=== PATIENT | male | born 2005 | race Caucasian/White ===

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

== ENCOUNTER 2023-12-24 21:14 | Emergency (ER) | payer OTHER, SELFPAY ==
[2023-12-24] VITALS (7 sets, daily range): BP systolic 111–137; BP diastolic 70–82; PULSE 67–88; RESP 15–22; TEMP 37.2; O2SAT 98–99
--- NOTE | 2023-12-24 21:35 | EKG12_ITS ---
Test Reason : CP Blood Pressure : / mmHG Vent. Rate : 072 BPM Atrial Rate : 072 BPM P-R Int : 164 ms QRS Dur : 090 ms QT Int : 368 ms P-R-T Axes : 059 063 062 degrees QTc Int : 402 ms Normal sinus rhythm Normal ECG Confirmed by NICHOLAS CASTANEDA, ABDOUL ([id number]), fashion editor NATHAN SNIDER ([id number]) on 12/28/2023 9:28:28 AM Referred By: KATHERINE Confirmed By:AILYN PETERSON MD
--- NOTE | 2023-12-24 21:40 | RAD_ITS ---
INDICATION: CHEST PAIN EXAMINATION/TECHNIQUE: X-RAY - XR Chest 1 View COMPARISON: 06/19/2020. FINDINGS: LINES/DEVICES: None. LUNGS: No consolidation or evidence of an effusion. No evidence of edema or a pneumothorax. MEDIASTINUM AND CARDIOVASCULAR STRUCTURES: Cardiac silhouette is normal in size and contour. Mediastinum is unremarkable. BONES AND SOFT TISSUES: No acute abnormality. RAD/Chest 1 View (Portable) IMPRESSION: No evidence of cardiopulmonary disease. Electronically Signed: Atul Roper DO at 22:02 EDT ,
[2023-12-24 21:49] LABS: Absolute Lymphocyte Count 2.61 X10^3/uL (0.83-4.51); Absolute Neutrophil Count 4.7 X10^3/uL (2.0-7.7); Basophil# 0.05 X10^3/uL; Basophil% 0.6 % (0-1); Eosinophil# 0.11 X10^3/uL; Eosinophils% 1.3 % (0-5); Hematocrit 43.5 % (40-54); Hemoglobin 15.1 g/dL (13.0-16.5); Lymphocyte # 2.61 X10^3/ul (0.83-4.51); Lymphocyte % 31.3 % (19-41); Mean Corp Hgb Conc 34.7 g/dL (32-36); Mean Corpuscular Hgb 30.4 pg (27.0-32.0); Mean Corpuscular Volume 87.5 fL (80-94); Mean Platelet Vol. 10.6 fl (6.2-12.0); Monocyte# 0.84 X10^3/uL; Monocyte% 10.1 % (0-10); NRBC Flagged by Analyzer 0 % (0-5); Neutrophil % 56.3 % (47-70); Platelet Count 348 K/mm3 (150-450); RBC Distribution Width CV 12.4 % (11.6-14.6); RBC Distribution Width SD 39.6 fl (35.1-43.9); Red Blood Count 4.97 M/mm3 (4.6-6.2); White Blood Count 8.3 K/mm3 (4.4-11.0)
[2023-12-24 22:10] LABS: Troponin-I HS (w/2H Reflex) 7 pg/mL (3.0-78.0)
[2023-12-24 23:08] LABS: Anion Gap 9 (5-15); BUN 12 mg/dL (7-18); BUN/Creat Ratio 12.9 RATIO (10-20); Calcium,Total 9.3 mg/dL (8.5-10.1); Chloride 108 mmol/L (98-107); Creatinine, Serum 0.93 mg/dL (0.70-1.30); EST Glomerular Filtration Rate 110 mL/min (>60); Est Glom Filt Rate - Afr Amer 133 mL/min (>60); Glucose 111 mg/dL (74-106); Potassium 3.7 mmol/L (3.5-5.1); Sodium Level 141 mmol/L (136-145)
[2023-12-24] MEDS: Ketorolac 15 MG/ML Vial IV (23:34)
[2023-12-24] MEDS: Lidocaine 5% Patch 1 PATCH TOPICAL (23:34)
--- NOTE | 2023-12-24 23:44 | ED.VIS.CHEST ---
HPI History of Present Illness Chief Complaint: Chest Pain Informant: patient Narrative Narrative: Patient is a 18-year-old male presenting with left-sided rib pain. Has been progressing over the past 2 days became more severe today. Earlier this evening he was taking her shirt off when the pain got so bad it froze him up and he had a fall to the ground. It is worse with certain movements as well as deep breathing. He denies any injuries. 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 Has not taken any medication for pain including ibuprofen or Tylenol. Had a similar episode about a year ago but it was not this severe and did not follow-up at that time. Has had some intermittent numbness to his left forearm and hands he does not currently have any. No other complaints or concerns reported. Denies any swelling of his legs, history of DVT PE. Denies any recent cough or URI symptoms. No fevers reported. Denies any trauma to the area. Denies other complaints at this time [facility] Medical History Depression Home Medications ?Medication ?Instructions ?Recorded ?Last Taken ?Type cyclobenzaprine 10 mg tablet 10 mg PO TID PRN Muscle Spasm #20 12/24/23 Unknown Rx TABLETS Allergy/AdvReac Type Severity Reaction Status Date / Time amoxicillin Allergy Hives Verified 12/24/23 21:15 Social History Smoking Status: Never smoker substance use type: does not use ROS ROS ED Constitutional Constitutional ED: Denies chills or fever(s) ENT ENT ED: Denies sore throat Cardiovascular Cardiovascular: Reports as per HPI and chest pain Respiratory/Chest Respiratory/Chest: Denies cough or dyspnea Gastrointestinal Gastrointestinal: Denies nausea or vomiting Integumentary Denies rash Neurologic Neurologic: Reports paresthesias LUE Hematologic/Lymphatic Hematologic/Lymphatic: Denies easy bleeding or easy bruising EXAM Physical Exam Const Vital Signs: 12/24/23 21:14 12/24/23 21:14 12/24/23 21:42 Temperature 98.9 F Temperature Source Oral Pulse Rate 67 Respiratory Rate 16 Respiratory Effort Normal Non-Labored Blood Pressure 126/78 H Blood Pressure Mean 94 Pulse Ox 98 Oxygen Delivery Method Room Air Room Air 12/24/23 21:43 12/24/23 21:48 12/24/23 22:00 Temperature Temperature Source Pulse Rate 88 81 Respiratory Rate 18 22 H Respiratory Effort Blood Pressure 137/79 H Blood Pressure Mean 94 Pulse Ox 99 99 99 Oxygen Delivery Method Room Air 12/24/23 22:15 12/24/23 22:30 12/24/23 23:00 Temperature Temperature Source Pulse Rate 81 67 79 Respiratory Rate 18 15 18 Respiratory Effort Blood Pressure 121/77 H 111/70 129/82 H Blood Pressure Mean 92 82 97 Pulse Ox 99 99 99 Oxygen Delivery Method Room Air Positive well nourished and well developed General Appearance ED: well developed and NAD Neck supple and no JVD Chest Wall inspection of chest normal Chest Narrative: Reproducible tenderness to palpation of the left ribs most pronounced at the mid axillary line at approximately ribs 5 through 7. No associated crepitus. No overlying rash appreciated Resp normal respiratory effort and clear to auscultation bilaterally Cardio regular rate and regular rhythm GI normal to inspection, nondistended, normoactive bowel sounds Extremity normal to inspection Extremity Narrative: Mild reproduction of rib pain with range of motion of the shoulder. Normal strength and movements of the left upper extremity diffusely General Extremety ED: Negative for edema General Extremity: Negative for edema Neuro oriented x3 Sensorium / Orientation: awake and alert Sensory Exam: No sensory level loss detected Motor Exam: strength 5/5 throughout; Negative for general weakness Psych mental status grossly normal Skin no rashes or lesions noted and no wounds Heart Score History: Slightly/Non-Suspicious ECG: Normal Age: </= 45 years Risk Factors: No Risk Factors Troponin: </= Normal Limit Score: 0 MDM MDM MDM Narrative Medical decision making narrative: Patient is evaluated for left-sided rib pain. It appears to be highly muscle skeletal and reproducible with direct palpation of movement. He has a physical job. Is given Toradol and a Lidoderm patch in the emergency room. Protocol cardiac workup including a chest x-ray performed which was largely negative. Chest x-ray reviewed by myself as well as radiology does not show any acute process. Patient's given referral for PCP. Counseled symptomatic treatments with NSAIDs and wdcw-rhu-dynlfth Lidoderm. He verbalized agreement understands plan. Is given a work note for today and tomorrow. Discharged home in stable condition. Patient is low risk for PE RC criteria I do not think requires D-dimer workup for pulmonary emboli. Suspicion for ACS, pneumothorax or pneumonia based on chest x-ray and troponin. Lab Data Attestation: I reviewed the patient's lab results. Labs: Laboratory Results - last 24 hr 12/24/23 21:20 WBC 8.3 RBC 4.97 Hgb 15.1 Hct 43.5 MCV 87.5 MCH 30.4 MCHC 34.7 RDW Std Deviation 39.6 RDW Coeff of Marvin 12.4 Plt Count 348 MPV 10.6 Immature Gran % (Auto) 0.400 Neut % (Auto) 56.3 Lymph % (Auto) 31.3 [place] % (Auto) 10.1 H Eos % (Auto) 1.3 Baso % (Auto) 0.6 Absolute Neuts (auto) 4.7 Absolute Lymphs (auto) 2.61 Nucleated RBC % 0 Sodium 141 Potassium 3.7 Chloride 108 H Carbon Dioxide 24.0 Anion Gap 9 BUN 12 Creatinine 0.93 Est GFR (MDRD) Af Amer 133 Est GFR (MDRD) Non-Af 110 BUN/Creatinine Ratio 12.9 Glucose 111 H Calcium 9.3 Troponin I High Sens 7 Radiography Chest X-Ray - ED: 1 View, Read by ED Physician, Read by Radiologist and No Acute Disease Diagnostic Testing: Clinical Impression(s) from Imaging Studies Chest X-Ray 12/24/23 21:40 IMPRESSION: No evidence of cardiopulmonary disease. Electronically Signed: Atul Roper DO at 22:02 EDT Reading Location ID and State: [facility] / [place] Tel , Service support , Rhythm Strip Rhythm Strip: Sinus Rhythm Rate: 72 Ectopy: None EKG Initial EKG: Attestation: I personally reviewed and interpreted this EKG as follows: Interpretation: Sinus Rhythm Comments: Normal sinus rhythm at a rate of 72 bpm Normal axis Normal intervals Normal ST segment Discharge Plan Triage Chief Complaint: Chest Pain ED Provider: Alycia Jefferson Dx/Rx/DC Orders Clinical Impression: Acute chest wall pain Instructions: ED Chest Wall Strain Prescriptions: New cyclobenzaprine 10 mg tablet 10 mg PO TID PRN (Reason: Muscle Spasm) Qty: 20 0RF Stand Alone Forms: Work / School Excuse Primary Care Provider: Care Physician,No Primary Referrals: Paul Bryant MD [Med Staff - Human Performance Consultant] - As Needed Care Physician,No Primary [Primary Care Provider] - Activity Restrictions/Additional Instructions: Take hokh-puh-vbtxczl ibuprofen for pain. He could also use pftp-eyt-cbtslof Lidoderm patches (Exer strength 4% Salonpas). I will prescribe you muscle relaxer as well to help as needed. This can make you sleepy to do not use while operating heavy machinery. Print Language: Anguillan Disposition Disposition: Home, Self Care
[2023-12-24 23:46] LABS: Reflex Troponin-HS? (from REC) Y
[2023-12-25] VITALS: BP 120/88; PULSE 80; RESP 18; TEMP 36.4; O2SAT 99
[2023-12-25 00:23] LABS: Troponin-I HS 6 pg/mL (3.0-78.0)
== END 2023-12-25 00:10 | disposition home or self-care (01) ==
PROVIDERS: Emergency Provider Emergency Medicine; Visit Provider Emergency Medicine
DX: R07.89 Other chest pain (principal); R07.81 Pleurodynia; R20.2 Paresthesia of skin
CPT/HCPCS: 71045; 80048; 84484; 85025; 93005; 99285; A4216

== ENCOUNTER 2025-02-14 10:38 | Emergency (ER) | payer OTHER, MEDICAID, SELFPAY ==
--- OUTSIDE RECORDS SUMMARY | 2024-11-29 19:10 | XMS RPT_ITS ---
Author Name Auto Generated Organization [facility] Care Team Providers Care Trim Mechanic Name Role Phone AMBROSE WELLS Attending Unavailable JOSH VENCES Attending Unavailable PROBLEMS DATE TYPE CONDITION / CODE ATTENDING STATUS [facility] 11/29/2024 Active Medial epicondyl itis of right elbow / M77.01(ICD-10) AMBROSE WELLS Active [facility] 11/28/2024 Active Dysfunction of r ight eustachian tube / H69.91(ICD-10) JOSH VENCES Active [facility] PROCEDURES No Procedure Records Found RESULTS PROGRESS Observed: 11/29/2024 7:23 PM Status: COMPLETED Source: [facility] HNO ID: [id number] Author: AMBROSE WELLS MD Service: ? Author Type: Physician Type: Progress Notes Filed: 11/29/2024 19:27 Note Text: URGENT CARE JACEKASH Sandoval is a 19 year old male. Patient presents with: Pain: R arm pain swelling and pain with squeezing x today Pt works in [employer] now right medial elbow area pain mild swelling distal area proximal forearm no limits to ROM Review of Systems Musculoskeletal: Positive for myalgias. Negative for arthralgias and joint swelling. Skin: Negative for rash and wound. Neurological: Negative for weakness and numbness. Objective BP 131/77 Pulse 81 Temp 36.6 ?C (97.8 ?F) Resp 18 Wt 77 kg (169 lb 12.1 oz) SpO2 96% BMI 22.40 kg/m? Physical Exam Vitals and nursing note reviewed. Constitutional: Appearance: Normal appearance. He is not ill-appearing. Musculoskeletal: General: Tenderness present. No deformity or signs of injury. Normal range of motion. Comments: Right medial proximal forearm pain to palpation no elbow joint pain Skin: Findings: No bruising, erythema or rash. Neurological: Mental Status: He is alert and oriented to person, place, and time. Sensory: No sensory deficit. Motor: No weakness. Coordination: Coordination normal. Deep Tendon Reflexes: Reflexes normal. {ASSESSMENT/PLAN: 1. Medial epicondylitis of right elbow - ICD9: 726.31, ICD10: M77.01 Pt to get elbow brace - DICLOFENAC 1 % TOPICAL GEL Ambrose Wells MD History and Record Review External record(s) reviewed: prior outpatient record. Differential Diagnoses - golfers elbow is more likely for the following reason(s): suggested by HANDP - elbow fracture is less likely for the following reason(s): no pain to palpation of joint and full ROM, HANDP not suggestive Disposition The patient was discharged. Procedures CNOV Observed: 11/29/2024 7:15 PM Status: COMPLETED Source: [facility] Office Visit ([facility]) AKI SANDOVAL ([id number]) 1 M Date Time Provider Department 11/29/24 7:15 PM AMBROSE WELLS During your visit today, we recorded the following information about you: Temperature Pulse Respiration Blood pressure 97.8 degrees 81/minute 18/minute 131/77 Weight 77 kg Ambrose Wells MD 11/29/2024 7:23 PM Signed Use elbow brace as discussed apply gel to area as discussed return here as needed Ambrose Wells MD 11/29/2024 7:27 PM Signed URGENT CARE JACE Aron Palacios Melany is a 19 year old male. Patient presents with: Pain: R arm pain swelling and pain with squeezing x today Pt works in [employer] now right medial elbow area pain mild swelling distal area proximal forearm no limits to ROM Review of Systems Musculoskeletal: Positive for myalgias. Negative for arthralgias and joint swelling. Skin: Negative for rash and wound. Neurological: Negative for weakness and numbness. Objective BP 131/77 Pulse 81 Temp 36.6 ?C (97.8 ?F) Resp 18 Wt 77 kg (169 lb 12.1 oz) SpO2 96% BMI 22.40 kg/m? Physical Exam Vitals and nursing note reviewed. Constitutional: Appearance: Normal appearance. He is not ill-appearing. Musculoskeletal: General: Tenderness present. No deformity or signs of injury. Normal range of motion. Comments: Right medial proximal forearm pain to palpation no elbow joint pain Skin: Findings: No bruising, erythema or rash. Neurological: Mental Status: He is alert and oriented to person, place, and time. Sensory: No sensory deficit. Motor: No weakness. Coordination: Coordination normal. Deep Tendon Reflexes: Reflexes normal. {ASSESSMENT/PLAN: 1. Medial epicondylitis of right elbow - ICD9: 726.31, ICD10: M77.01 Pt to get elbow brace - DICLOFENAC 1 % TOPICAL GEL Ambrose Wells MD History and Record Review External record(s) reviewed: prior outpatient record. Differential Diagnoses - golfers elbow is more likely for the following reason(s): suggested by HANDP - elbow fracture is less likely for the following reason(s): no pain to palpation of joint and full ROM, HANDP not suggestive Disposition The patient was discharged. Procedures Allergies As of Date: 11/29/2024 Noted Allergy Reaction AMOXICILLIN 01/01/2014 2 - Rash Date Reviewed: 11/29/2024 Reviewed by: Amy Rodriguez LPN - Fully Assessed Reason for Visit: Pain [78] Cmt: R arm pain swelling and pain with squeezing x today Primary Visit Diagnosis:Medial epicondylitis of right elbow [M77.01] Order(s):diclofenac (VOLTAREN) 1 % topical gelApply 2 g to affected area three times a day as needed for up to 7 days.Disp: 42 gRfl: 0 Prescriptions as of 11/29/2024 - diclofenac (VOLTAREN) 1 % topical gel Apply 2 g to affected area three times a day as needed for up to 7 days. - Lyyjlfhwbzxfyol-Ccyaqxvll-UG (BROMFED DM) 2-30-10 mg/5 mL syrup Take 10 mL by mouth four times daily as needed. - fluticasone (FLONASE) 50 mcg/actuation nasal spray Use 2 Sprays in each nostril once daily. Rinse mouth after use. - fluticasone (FLONASE) 50 mcg/actuation nasal spray Use 2 Sprays in each nostril once daily. Rinse mouth after use. - ARIPiprazole (ABILIFY) 5 mg tablet Take 5 mg by mouth as directed. 1.5 tablet (7.5 mg) daily - hydrocortisone 2.5 % ointment Apply to affected area as needed. - loratadine (CLARITIN) 10 mg tablet Take by mouth once daily. As needed. - risperiDONE (RISPERDAL) 1 mg tablet Take 1 mg by mouth twice daily. Problem List As Of Date: 11/29/2024 (None) Other instructions from your clinician: Use elbow brace as discussed apply gel to area as discussed return here as needed Prescriptions ordered this encounter Disp Refills Start End DICLOFENAC 1 % TOPICAL GEL 42 g 0 11/29/2024 12/06/2024 Route: TOP Sig: Apply 2 g to affected area three times a day as needed for up to 7 days. Level of Service: OFFICE/OUTPATIENT ESTABLISHED MOD [facility] 30 MIN [36366] Letter Text Encounter Status:Closed by AMBROSE WELLS on 11/29/24 PROGRESS Observed: 11/28/2024 5:48 PM Status: COMPLETED Source: [facility] HNO ID: [id number] Author: JOSH VENCES PA-C Service: ? Author Type: Physician Field Administrative Assistant Type: Progress Notes Filed: 11/28/2024 17:50 Note Text: This note was created using [employer]. Subjective Aki Sandoval is a 19 year old male. Patient is a 19-year-old male who complains of right ear pain that he has been experiencing for the past 1 day. Patient reports no congestion, sinus pressure, sore throat, cough or other illness symptoms. Patient states his left ear is asymptomatic and nontender. Patient reports that he has not been swimming recently. Ear Pain Review of Systems HENT: Positive for ear pain. All other systems reviewed and are negative. Objective BP 120/82 Pulse 75 Temp 36.9 ?C (98.5 ?F) (Tympanic) Resp 16 Wt 77.1 kg (169 lb 15.6 oz) SpO2 98% BMI 22.43 kg/m? Physical Exam Vitals and nursing note reviewed. Constitutional: Appearance: Normal appearance. He is normal weight. HENT: Head: Normocephalic and atraumatic. Right Ear: Tympanic membrane, ear canal and external ear normal. There is no impacted cerumen. Left Ear: Tympanic membrane, ear canal and external ear normal. There is no impacted cerumen. Nose: Nose normal. Mouth/Throat: Mouth: Mucous membranes are moist. Pharynx: Oropharynx is clear. Eyes: Extraocular Movements: Extraocular movements intact. Conjunctiva/sclera: Conjunctivae normal. Pupils: Pupils are equal, round, and reactive to light. Cardiovascular: Rate and Rhythm: Normal rate and regular rhythm. Pulses: Normal pulses. Heart sounds: Normal heart sounds. Pulmonary: Effort: Pulmonary effort is normal. Breath sounds: Normal breath sounds. Musculoskeletal: Cervical back: Normal range of motion and neck supple. Skin: General: Skin is warm and dry. Capillary Refill: Capillary refill takes less than 2 seconds. Neurological: General: No focal deficit present. Mental Status: He is alert and oriented to person, place, and time. Psychiatric: Mood and Affect: Mood normal. Behavior: Behavior normal. Thought Content: Thought content normal. Judgment: Judgment normal. Assessment and Plan Fully unremarkable physical exam findings as noted above. Supportive care instructions were discussed and the patient verbalizes good understanding of same. CLINICAL IMPRESSION: Right Ear Pain; ETD Right Ear ASSESSMENT/PLAN: 1. Dysfunction of right eustachian tube - ICD9: 381.81, ICD10: H69.91 MDM Risk of Complications, Morbidity, and/or Mortality Presenting problems: low Diagnostic procedures: low Management options: KATHIE Skaggs Observed: 11/28/2024 5:30 PM Status: COMPLETED Source: [facility] Office Visit ([facility]) AKI SANDOVAL ([id number]) 1 M Date Time Provider Department 11/28/24 5:30 PM JOSH VENCES During your visit today, we recorded the following information about you: Temperature Pulse Respiration Blood pressure 98.5 degrees 75/minute 16/minute 120/82 Weight 77.1 kg Josh Vences PA-C 11/28/2024 5:50 PM Signed This note was created using [employer]. Subjective Aki Sandoval is a 19 year old male. Patient is a 19-year-old male who complains of right ear pain that he has been experiencing for the past 1 day. Patient reports no congestion, sinus pressure, sore throat, cough or other illness symptoms. Patient states his left ear is asymptomatic and nontender. Patient reports that he has not been swimming recently. Ear Pain Review of Systems HENT: Positive for ear pain. All other systems reviewed and are negative. Objective BP 120/82 Pulse 75 Temp 36.9 ?C (98.5 ?F) (Tympanic) Resp 16 Wt 77.1 kg (169 lb 15.6 oz) SpO2 98% BMI 22.43 kg/m? Physical Exam Vitals and nursing note reviewed. Constitutional: Appearance: Normal appearance. He is normal weight. HENT: Head: Normocephalic and atraumatic. Right Ear: Tympanic membrane, ear canal and external ear normal. There is no impacted cerumen. Left Ear: Tympanic membrane, ear canal and external ear normal. There is no impacted cerumen. Nose: Nose normal. Mouth/Throat: Mouth: Mucous membranes are moist. Pharynx: Oropharynx is clear. Eyes: Extraocular Movements: Extraocular movements intact. Conjunctiva/sclera: Conjunctivae normal. Pupils: Pupils are equal, round, and reactive to light. Cardiovascular: Rate and Rhythm: Normal rate and regular rhythm. Pulses: Normal pulses. Heart sounds: Normal heart sounds. Pulmonary: Effort: Pulmonary effort is normal. Breath sounds: Normal breath sounds. Musculoskeletal: Cervical back: Normal range of motion and neck supple. Skin: General: Skin is warm and dry. Capillary Refill: Capillary refill takes less than 2 seconds. Neurological: General: No focal deficit present. Mental Status: He is alert and oriented to person, place, and time. Psychiatric: Mood and Affect: Mood normal. Behavior: Behavior normal. Thought Content: Thought content normal. Judgment: Judgment normal. Assessment and Plan Fully unremarkable physical exam findings as noted above. Supportive care instructions were discussed and the patient verbalizes good understanding of same. CLINICAL IMPRESSION: Right Ear Pain; ETD Right Ear ASSESSMENT/PLAN: 1. Dysfunction of right eustachian tube - ICD9: 381.81, ICD10: H69.91 MDM Risk of Complications, Morbidity, and/or Mortality Presenting problems: low Diagnostic procedures: low Management options: low Josh KATHIE Vences Allergies As of Date: 11/28/2024 Noted Allergy Reaction AMOXICILLIN 01/01/2014 2 - Rash Date Reviewed: 11/28/2024 Reviewed by: Felicia Cook LPN - Fully Assessed Reason for Visit: Ear Pain [817] Cmt: Left ear pain x 1 day Primary Visit Diagnosis:Dysfunction of right eustachian tube [H69.91] Prescriptions as of 11/28/2024 - Crwqxffwofycahq-Pzogkkdtj-JF (BROMFED DM) 2-30-10 mg/5 mL syrup Take 10 mL by mouth four times daily as needed. - fluticasone (FLONASE) 50 mcg/actuation nasal spray Use 2 Sprays in each nostril once daily. Rinse mouth after use. - fluticasone (FLONASE) 50 mcg/actuation nasal spray Use 2 Sprays in each nostril once daily. Rinse mouth after use. - ARIPiprazole (ABILIFY) 5 mg tablet Take 5 mg by mouth as directed. 1.5 tablet (7.5 mg) daily - hydrocortisone 2.5 % ointment Apply to affected area as needed. - loratadine (CLARITIN) 10 mg tablet Take by mouth once daily. As needed. - risperiDONE (RISPERDAL) 1 mg tablet Take 1 mg by mouth twice daily. Problem List As Of Date: 11/28/2024 (None) Level of Service: OFFICE/OUTPATIENT ESTABLISHED LOW MDM 20 MIN [99570] LOS History for Encounter Level of Service: OFFICE/OUTPATIENT ESTABLISHED MOD MDM 30 MIN[72039] Date AND Time: 11-28-2024 5:50 PM Recorded by User: JOSH VENCES Encounter Status:Closed by JOSH VENCES on 11/28/24 ALLERGIES DATE TYPE / CODE NAME / CODE REACTION SEVERITY SOURCE 01/01/2014 DRUG INGREDI/[id number](SN OMED CT) AMOXICILLIN RASH [facility] ENCOUNTERS ADMIT/DISCHARGE ACCOUNT NUMBER ADMITTING ENCOUNTER CLASS LOC ATION SOURCE 11/29/2024/ [id number]24[id number] [facility] PAYERS ENCOUNTER GUARANTOR PAYER SUBSCRIBER SOURCE 11/29/2024 Primary Insurance:Savedailyy Number: [id number] Date:[id number] Name:Janee ESCOBAR: [id number] [place] [address] [facility] 11/28/2024 Primary Insurance:[employer]y Number: [id number] Date:[id number] Name:Janee ESCOBAR: [id number] [place] [address] [facility]
[2025-02-14 10:40] VITALS: BP 132/80; PULSE 84; RESP 14; TEMP 37.2; O2SAT 98; BMI 23.5
--- NOTE | 2025-02-14 10:53 | ED.RN ---
PER PT HE HAS BEEN HAVING THESE INTENSE BELLA'S THAT COME APPROX 3X PER WEEK. HE HAS HAD INCREASED NOSE BLEEDS. UNKNOWN OF ANY SEASONAL ALLERGIES. DENIES HX OF MIGRAINES THAT HE KNOWS OF. PT DOES GET A STIFF NECK, BLURRED VISION, AND N/V WITH THE HEADACHES.
--- NOTE | 2025-02-14 11:17 | EDS_ITS ---
HPI History of Present Illness Chief Complaint: Headache Informant: patient Onset/Context/Timing Onset: Today and Weeks Context: Gradual Timing: Intermittent Quality -Headache: Positive for Similar Prior Headaches Current Severity: Mild Maximum Severity: Moderate Associated Symptoms/Injury Associated Symptoms: Positive for Nausea and Vomiting; Negative for Fever, Sore Throat, Sinus Pressure, Numbness, Tingling, Preceding Aura, Visual Changes, Blurred Vision, Photophobia or Visual Loss Injury - BELLA: Negative for Direct Trauma, Fall or Assault Narrative Narrative: 19-year-old male no significant past medical or surgical history. Currently on no medications. He says for the last several weeks to 1 to 2 months he has been having intermittent headaches. Denies any fall injury or trauma. No family history of intracranial bleeds or aneurysms. He describes his headaches as gradual. They are on both sides of his head. At times are severe enough to cause him nausea and vomiting. They are gradual in onset they are not sudden. Denies any fever. No neck pain. He does get sonophobia and photophobia with them. Denies any sinus congestion. His current headache is only about a 2 out of 10. He said often he takes Tylenol or Motrin and they resolve. Patient also has developed a rash in the last 2 to 3 days on his chest and abdomen it itches. He has no specific cause. Prior similar symptoms: Yes Recent Illness/Hospitalization: No [facility] Medical History Depression Home Medications ?Medication ?Instructions ?Recorded ?Last Taken ?Type prednisone 20 mg tablet 40 mg (2 x 20 mg) PO DAILY 5 days 02/14/25 Unknown Rx #10 tabs Allergy/AdvReac Type Severity Reaction Status Date / Time amoxicillin Allergy Hives Verified 02/14/25 10:55 Social History Smoking Status: Never smoker substance use type: does not use ROS ROS ED ROS Narrative Headache. Rash. Constitutional Constitutional ED: Denies chills or fever(s) Eyes Eyes: Denies blurry vision ENT ENT ED: Denies ear pain Cardiovascular Cardiovascular: Denies chest pain Respiratory/Chest Respiratory/Chest: Denies cough or dyspnea Gastrointestinal Gastrointestinal: Reports nausea and vomiting; Denies abdominal pain or diarrhea Genitourinary Genitourinary ED: Denies dysuria or hematuria Musculoskeletal Musculoskeletal: Denies arthralgias or back pain Integumentary Denies abscess or Abrasions Neurologic Neurologic: Reports headache(s); Denies paresthesias or weakness Psychiatric Psychiatric: Denies anxiety Endocrine Endocrinology: Denies polydipsia Hematologic/Lymphatic Hematologic/Lymphatic: Denies easy bleeding, easy bruising or lymphadenopathy Allergic/Immunologic Allergic/Immunologic ED: Denies mouth swelling, tongue swelling or urticaria EXAM Physical Exam Narrative Exam Narrative: Well-appearing 19-year-old male. Vital signs stable afebrile. No acute distress. Companied by his significant other. H EENT exam pupils round react light. His motions are intact. No signs of trauma to his head. No frontal or maxillary sinus tenderness. Moist mutes membranes. No signs of trauma. Neck nontender no meningismus. No lymphadenopathy. Able to flexion and chest. Back nontender. Lungs clear to auscultation bilaterally. Heart regular rhythm no murmur. Rate about 80. Chest wall ribs nontender. Abdomen soft nontender. On his abdomen and thighs he has a rash that is red it is fine. It is not raised. It is not hives. There is no petechiae or purpura. No vesicles. No sloughing of skin. No pustules. It is consistent with allergic reaction. It does juan. Neurologic exam is normal. NIH is 0. Awake alert. No facial droop. Normal speech. 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 Normal dorsi plantarflexion. No drift of either upper or lower extremities. Fingertip to nose and heel barry within normal limits. Rapid hand movements normal. Ambulates without any difficulty. Const Vital Signs: 02/14/25 10:40 Temperature 99 F Temperature Source Temporal Pulse Rate 84 Respiratory Rate 14 Blood Pressure 132/80 H Blood Pressure Mean 97 Pulse Ox 98 Oxygen Delivery Method Room Air Positive well nourished and well developed; Negative for obese, cachectic, contractures or unkempt General Appearance ED: well developed and NAD; Negative for unkempt, cachectic, contractures, cyanotic or diaphoretic Nutritional Appearance: Negative for cachectic or obese HEENT Reports normocephalic and moist mucous membranes atraumatic; Negative for trauma, tenderness, temporal artery tenderness or vesicular rash Face and Sinus: Negative for sinus tenderness Eyes PERRL and EOMs intact bilaterally Neck no lymphadenopathy, supple, no meningeal signs and no JVD General: Negative for tenderness Resp normal respiratory effort and clear to auscultation bilaterally Cardio regular rate, regular rhythm, S1 normal heart sound, S2 normal heart sound and no murmurs GI non-tender and non-distended Auscultation: normoactive bowel sounds Palpation: soft; Negative for firm, tender, guarding or mass Back/Spine no CVA tenderness General Back: Negative for CVA tenderness Cervical Spine: Negative for cervical spine tenderness Thoracic Spine / Upper Back: Negative for thoracic spinal tenderness Lumbar Spine / Lower Back: Negative for lumbar spinal tenderness Extremity normal to inspection, full ROM and normal capillary refill Extremity Narrative: Sandpaper fine red rash that blanches on bilateral thighs and abdomen. No petechiae or purpura. No vesicles. No sloughing of skin. Consistent with allergic reaction. General Extremety ED: Negative for edema or tenderness General Extremity: Negative for edema Neuro oriented x3 and CN's II-XII intact bilaterally Neuro Narrative: NIH equals 0. Sensorium / Orientation: awake, alert, oriented to person, oriented to place and oriented to time Coordination / Balance: [id number] test normal and [id number] test normal Speech: speech normal Gait (Neuro): normal gait Motor Exam: strength 5/5 throughout Psych mental status grossly normal Appearance: Negative for unkempt Attitude: No agitated Mood & Affect: Negative for tearful Skin Skin Narrative: Fine sandpaper rash. Abdomen and thighs. Blanches. Consistent with allergic reaction. General Skin Exam: elasticity normal Lesions: no lesions Rashes: No no rashes MDM MDM MDM Narrative Medical decision making narrative: 19-year-old male frequent headaches over the last month. Normal neurologic exam. CT will be obtained. My clinical suspicion for acute pathology that we will see on CAT scan is low. Patient also has a rash consistent allergic reaction. It itches. It does not look infectious. Will be given a dose of prednisone. His headache currently is only a 2 out of 10 and he did not want anything for pain. Repeat exam patient is doing well at 11:58 AM. CAT scan was negative. We discussed the results. We discharged him home. Treated for his allergic reaction and rash with prednisone. Follow-up as needed. Return if worse. Rash resolving. Neurologic exam remains normal. History & Record Review Discussion w/independent historian: Patient and Family Additional record(s) reviewed:: Prior inpatient record, Prior outpatient record, Prior ED visit and Prior labs Discharge Plan Triage Chief Complaint: Headache ED Provider: Eric Wilson Dx/Rx/DC Orders Clinical Impression: Headache, Allergic reaction, Rash Instructions: ED Headache Unspecified Prescriptions: New prednisone 20 mg tablet 40 mg PO DAILY 5 Days Qty: 10 0RF Primary Care Provider: Care Physician,No Primary Referrals: Abdifatah Garibay MD [Med Staff - Product Management Consultant, Family Practice] - As Needed Care Physician,No Primary [Primary Care Provider, Medical] Activity Restrictions/Additional Instructions: The rash is allergic reaction to something. Prednisone daily until the rash is gone. Follow-up with local primary care physician for further evaluation of your headaches. Motrin and Tylenol for pain. Print Language: Estonian Disposition Disposition: Home, Self Care
--- NOTE | 2025-02-14 11:25 | CT_ITS ---
PROCEDURE: BRAIN/HEAD WITHOUT CONTRAST 02/14/2025 REASON FOR EXAM: HEADACHES TECHNIQUE: Procedure Code: CTBR Modality: CT Procedure: BRAIN/HEAD WITHOUT CONTRAST Coronal and Sagittal reconstruction series were provided. One or more dose reduction techniques were used (e.g., Automated exposure control, adjustment of the mA and/or kV according to patient size, use of iterative reconstruction technique. RADIATION DOSE SUMMARY: CTDlvol: 44.99 mGy DLP: 846.73 mGycm COMPARISON: None. FINDINGS: Brain: Normal. No extra-axial fluid collection is seen. No orbital abnormality is noted. CSF Spaces: Normal Sinuses/Mastoids: Clear at visualized levels Bones: No significant abnormality noted. CT/Brain/Head without Contrast IMPRESSION: NORMAL NONCONTRAST HEAD CT. Reading Location: [id number]
[2025-02-14 12:07] VITALS: BP 116/74; PULSE 95; RESP 14; TEMP 37.2; O2SAT 98
== END 2025-02-14 12:08 | disposition home or self-care (01) ==
PROVIDERS: Emergency Provider Emergency Medicine; Visit Provider Emergency Medicine
DX: T78.40XA Allergy, unspecified, initial encounter (principal); R11.2 Nausea with vomiting, unspecified; R51.9 Headache, unspecified; X58.XXXA Exposure to other specified factors, initial encounter
CPT/HCPCS: 70450; 99282

== ENCOUNTER 2025-02-21 21:45 | Emergency (ER) | payer OTHER, MEDICAID, SELFPAY ==
[2025-02-21 21:46] VITALS: BP 119/85; PULSE 77; RESP 18; TEMP 35.9; O2SAT 97; BMI 23.0
--- NOTE | 2025-02-21 22:09 | EX.ED.DYSGE1 ---
HPI History of Present Illness Chief Complaint: Bite Informant: patient and spouse/S.O. Narrative Narrative: Patient is a 19-year-old male with past medical history of depression. He states roughly an hour prior to arrival he was trying to break up a fight between his cat and dog. He reports the cat bit him multiple times in the right hand. He states that there is no numbness tingling or weakness. He denies any history of immunosuppression. He is unsure of his tetanus status. He is right-hand dominant. He reports that with the Idea concern he may need antibiotics as there is higher risk for infection and with this comes in for evaluation. [facility] Medical History Depression Home Medications ?Medication ?Instructions ?Recorded ?Last Taken ?Type clindamycin HCl 300 mg capsule 300 mg PO 4X/DAY 7 days #28 caps 02/21/25 Unknown Rx (Cleocin HCl) sulfamethoxazole 800 1 tab PO BID 7 days #14 tabs 02/21/25 Unknown Rx mg-trimethoprim 160 mg tablet (Bactrim DS) Allergy/AdvReac Type Severity Reaction Status Date / Time amoxicillin Allergy Hives Verified 02/21/25 21:46 Social History Smoking Status: Never smoker substance use type: does not use ROS ROS ED Constitutional Constitutional ED: Denies chills or fever(s) ENT ENT ED: Denies sore throat Cardiovascular Cardiovascular: Denies chest pain Respiratory/Chest Respiratory/Chest: Denies cough or dyspnea Gastrointestinal Gastrointestinal: Denies abdominal pain, diarrhea, nausea or vomiting Musculoskeletal Musculoskeletal: Reports other Details: Positive right hand pain Integumentary Reports other Details: Positive cat bite right hand Neurologic Neurologic: Denies headache(s), paresthesias or weakness Hematologic/Lymphatic Hematologic/Lymphatic: Denies easy bleeding or easy bruising EXAM Physical Exam Const Vital Signs: 02/21/25 21:46 Temperature 96.6 F L Temperature Source Temporal Pulse Rate 77 Respiratory Rate 18 Blood Pressure 119/85 H Blood Pressure Mean 96 Pulse Ox 97 Oxygen Delivery Method Room Air Positive well nourished and well developed General Appearance ED: well developed HEENT HEENT Narrative: Normocephalic atraumatic Eyes PERRL and EOMs intact bilaterally General Eye ED: Negative for scleral icterus Neck supple Resp normal respiratory effort and clear to auscultation bilaterally Cardio regular rate and regular rhythm Extremity Extremity Narrative: Right upper extremity is neurovascularly intact; AIN/PIN are intact and normal. No sign of ligamentous or tendon injury. Patient has a puncture wound to the dorsal aspect of the right thumb as well as a puncture wound with skin tear to the finger pad of the right thumb as well. There is minimal ooze of bleeding without retained foreign body. Patient has superficial abrasions to the volar aspect of the right wrist all consistent with cat bite. However there is no surrounding erythema or warmth no crepitance palpated no lymphangitic streaking. Remainder of the exam is normal Neuro oriented x3, CN's II-XII intact bilaterally and no sensory deficits noted Sensorium / Orientation: alert Motor Exam: strength 5/5 throughout Psych mental status grossly normal Skin Skin Narrative: Soft tissue changes to the right hand/thumb as documented above consistent with cat bite without signs of secondary infection at this time MDM MDM MDM Narrative Medical decision making narrative: Patient arrived to the ER with stable vitals. He reported being bitten by his cat in his right hand/thumb roughly an hour prior to arrival. As the cat is known he does not require rabies vaccination or immunoglobulin. However as he is an unknown tetanus status will be updated. He reports an allergy to penicillins and he states it causes a rash and difficulty breathing so therefore we will refrain from providing Augmentin and he will be started on clindamycin and Bactrim. The wound was cleaned with chlorhexidine. The wounds are not gaping so there is no need for any type of closure. The patient does not have any findings of ligamentous or tendon injury or retained foreign body. Therefore do not feel the need for imaging. He does not have crepitance or lymphangitic streaking or fever and therefore there are no signs of systemic infection and there is no need for IV antibiotics or laboratory studies at this time. Therefore patient will be started on clindamycin and Bactrim in order to prevent secondary infection from the cat bite but is otherwise safe for discharge History & Record Review Discussion w/independent historian: Patient Discharge Plan Triage Chief Complaint: Bite ED Provider: Miles Abraham Dx/Rx/DC Orders Clinical Impression: Cat bite of multiple sites of right hand and fingers, History of depression Instructions: ED Cat Bite Prescriptions: New clindamycin HCl [Cleocin HCl] 300 mg capsule 300 mg PO 4X/DAY 7 Days Qty: 28 0RF sulfamethoxazole-trimethoprim [Bactrim DS] 800-160 mg tablet 1 tab PO BID 7 Days Qty: 14 0RF Primary Care Provider: Care Physician,No Primary Referrals: Madi Bauer MD [Med Staff - Active Staff, Family Practice] Care Physician,No Primary [Primary Care Provider, Medical] Activity Restrictions/Additional Instructions: Please wash the area with soap and water to help prevent infection as well as take the antibiotics as directed to prevent any secondary infection. If you develop surrounding redness streaking or a fever you may require IV antibiotics and potential admission. If this occurs please return to the ER for repeat evaluation. Print Language: Gibraltarian Disposition Disposition: Home, Self Care
[2025-02-21] MEDS: Smz/Tmp Ds Tablet 1 TABLET PO (22:14)
[2025-02-21 22:20] VITALS: BP 119/85; PULSE 77; RESP 18; TEMP 35.9; O2SAT 97
== END 2025-02-21 22:44 | disposition home or self-care (01) ==
LOC: ED 22:24
PROVIDERS: Emergency Provider Emergency Medicine; Visit Provider Emergency Medicine
DX: S60.571A Other superficial bite of hand of right hand, initial encounter (principal); S60.371A Other superficial bite of right thumb, initial encounter; S60.811A Abrasion of right wrist, initial encounter; W55.01XA Bitten by cat, initial encounter; F32.A Depression, unspecified; Z88.0 Allergy status to penicillin
CPT/HCPCS: 90715; 99282